=== PATIENT | female | born 1980 | race Caucasian/White ===

== ENCOUNTER 2022-11-09 16:47 | Emergency (ER) | payer OTHER, SELFPAY ==
[2022-11-09 17:19] VITALS: BP 124/78; PULSE 87; RESP 16; TEMP 36.8; O2SAT 98; BMI 27.5
--- NOTE | 2022-11-09 17:31 | DI.CT.S_ITS ---
PROCEDURE: CT ABDOMEN PELVIS W CON INDICATIONS: Right lower quadrant abdominal pain eval for appy TECHNIQUE: After the administration of oral and IV contrast, axial sections were acquired from the lung bases to the pubic symphysis. Coronal and sagittal reformats were performed. For radiation dose reduction, the following was used: automated exposure control, adjustment of mA and/or kV according to patient size. COMPARISON: None. FINDINGS: Image quality: Excellent. Lung bases: Unremarkable. Small hiatal hernia. Heart: No significant findings. ABDOMEN: Liver: Mild hepatic steatosis.. Gallbladder: Unremarkable. Biliary ducts: Unremarkable. Pancreas: Unremarkable. Spleen: Unremarkable. Adrenal Glands: Unremarkable. Kidneys and Ureters: Unremarkable. Stomach and Bowel: Stomach, small bowel loops, and colon are unremarkable. Appendix is normal. Peritoneum: No abnormal intraperitoneal fluid. No free air. Ventral Wall: No hernia. Abdominal Nodes: No retroperitoneal or mesenteric adenopathy by size criteria. Vessels: Aorta and inferior vena cava are normal in size. PELVIS: Pelvic Organs: There is a 3.5 x 2.5 cm cyst in the right adnexa, most likely arising from the right ovary. There is a small amount of free fluid in the cul-de-sac. Left ovary is normal with a dominant follicle measuring 1.7 cm. Uterus is unremarkable. Bladder: Unremarkable. Pelvic Nodes: No enlarged lymph nodes. Miscellaneous: No inguinal hernias are seen. Bones: Unremarkable. IMPRESSION: 1. Normal appendix. 2. A 3.5 x 2.5 cm right ovarian cyst. There is a small amount of free fluid in the cul-de-sac. 3. Mild hepatic steatosis. Dictated by: Luis Alberto Rodas M.D. on 11/09/2022 at 20:14 Approved by: Luis Alberto Rodas M.D. on 11/09/2022 at 20:17
[2022-11-09 19:22] LABS: Add Manual Diff / Slide Review NO; Basophils Absolute Auto 100 /uL (0-100); Basophils Percent Auto 1.3 % (0-2); Eosinophils Absolute Auto 100 /uL (0-450); Eosinophils Percent Auto 1.5 % (2-4); Hematocrit 39.5 % (36-46); Hemoglobin 13.1 g/dL (12.0-16.0); Lymphocytes Absolute Auto 2500 /uL (1100-4500); Lymphocytes Percent Auto 30.2 % (25-40); Mean Corpuscular HGB Conc 33.2 % (30-36); Mean Corpuscular Hemoglobin 29.1 PG (26-34); Mean Corpuscular Volume 87.6 fL (80-100); Monocytes Absolute Auto 700 /uL (0-900); Monocytes Percent Auto 8.7 % (3-14); Neutrophils Absolute Auto 4800 /uL (1500-7000); Neutrophils Percent Auto 58.3 % (50-75); Platelet Count 210 X10^3/uL (150-400); Red Blood Cell Count 4.51 X10^6/uL (4.0-5.2); Red Cell Distribution Width 14.2 % (11.6-14.8); White Blood Cell Count 8.2 X10^3/uL (4.5-11.0)
[2022-11-09 19:35] LABS: Alanine Aminotransferase 29 IU/L (<35); Albumin 4.6 g/dL (3.5-5.0); Albumin Globulin Ratio 1.4 (1.0-2.8); Alkaline Phosphatase 67 U/L (38-126); Aspartate Aminotransferase 23 IU/L (14-36); BUN Creatinine Ratio 16.1 (6-22); Bilirubin Total 0.2 mg/dL (0.2-1.3); Blood Urea Nitrogen 9 mg/dL (7-17); Calcium 9.5 mg/dL (8.4-10.2); Carbon Dioxide 24 mmol/L (22-32); Chloride 101 mmol/L (98-107); Estimated Glomerular Filt Rate > 60 mL/min (>60); Globulin 3.3 g/dL (1.7-4.1); Glucose 93 mg/dL (70-100); HEMOLYSIS < 15 (0-50); Lipase 83 U/L (23-300); Potassium 3.9 mmol/L (3.4-5.1); Sodium 136 mmol/L (137-145); Total Protein 7.9 g/dL (6.3-8.2)
[2022-11-09] MEDS: SODIUM CHLORIDE 0.9% 1,000 ML 1000 ML IV (19:35)
[2022-11-09 19:39] VITALS: BP 140/82; PULSE 73; O2SAT 100
[2022-11-09 20:00] VITALS: BP 129/68; PULSE 79; O2SAT 100
[2022-11-09 20:30] VITALS: BP 134/79; PULSE 73; O2SAT 100
--- NOTE | 2022-11-09 20:45 | ED_ITS ---
HPI - Abdominal Pain General Chief Complaint: Abdominal Pain Stated Complaint: possible appendisitis-pain rt low abd, press Time Seen by Provider: 11/09/22 19:07 Source: patient Mode of arrival: Ambulatory History of Present Illness HPI narrative: A 42-year-old female nonsmoker without chronic medical problems presents for evaluation of right lower quadrant pain at the request of her primary care provider. Patient has had some right lower quadrant pain off and on for the past week, she has had some subjective fever and chills. She denies any change in her appetite. She is had mild nausea but denies any vomiting. She denies dysuria, frequency or urgency. She denies any vaginal bleeding or discharge. Her pain is worse when she moves and improves with rest. Related Data Previous Rx's Medication Instructions Recorded ketorolac 10 mg tablet 10 mg PO Q6H PRN pain #14 tabs 11/09/22 Allergies Allergy/AdvReac Type Severity Reaction Status Date / Time No Known Drug Allergies Allergy Verified 11/09/22 17:19 Review of Systems Review of Systems Narrative: GENERAL: Denies chills, fatigue, malaise, fever, sweats. HEENT: Denies sinus pain, ear pain, sore throat, difficulty swallowing, dizziness. RESPIRATORY: Denies dyspnea, cough, wheezing, hemoptysis, sputum. CARDIOVASCULAR: Denies chest pain, palpitations, orthopnea, edema, GASTROINTESTINAL: See HPI : See HPI MUSCULOSKELETAL: denies weakness, joint pain, or bony pain SKIN: Denies rash, skin lesions, or other NEUROLOGIC: Denies weakness, headache, numbness, change in speech, confusion, seizures, incoordination. PSYCHIATRIC: No concerning psychosocial issues. 12 point review of systems is negative except for those stated above Patient History Social History Smoking Status: Current every day smoker Smoking Status: Current every day smoker Substance Use Type: does not use Exam Narrative Exam Narrative: GENERAL: [42] year old patient appears stated age. Well-developed patient, in mild distress. HEAD: Atraumatic. Normocephalic. EYES: Pupils equal round and reactive. Extraocular motions intact. No scleral icterus. No injection or drainage. ENT: Nose without bleeding, purulent drainage. Throat without erythema, tonsillar hypertrophy or exudate. Airway patent. NECK: Trachea midline. Non tender CARDIOVASCULAR: Regular rate and rhythm without murmurs, gallops, or rubs. RESPIRATORY: Clear to auscultation. Breath sounds equal bilaterally. No wheezes, rales, or rhonchi. GASTROINTESTINAL: Abdomen soft, right lower quadrant tenderness, nondistended. EXTREMITIES: No edema or joint tenderness. BACK: Nontender without deformity or crepitance. No flank tenderness. NEURO: AOx3. SKIN: No rash or erythema of visible areas Initial Vital Signs Initial Vital Signs: Vital Signs Temperature 98.2 F 11/09/22 17:19 Pulse Rate 87 11/09/22 17:19 Respiratory Rate 16 11/09/22 17:19 Blood Pressure 124/78 11/09/22 17:19 Pulse Oximetry 98 11/09/22 17:19 Oxygen Delivery Method 11/09/22 17:19 Course Orders Ordered: ED Orders 11/09/22 17:31 CT abdomen pelvis w con Stat 11/09/22 19:13 Complete Blood Count AUTO DIFF Stat Comprehensive Metabolic Panel Stat Lipase Stat 11/09/22 20:52 US pelvic complete Stat Discontinued Medications Sodium Chloride (Normal Saline 0.9%) 1,000 mls @ 1,000 mls/hr IV BOLUS ONE Stop: 11/09/22 18:29 Last Infusion: 11/09/22 20:34 Dose: 0 mls/hr Documented By: Admin: 11/09/22 19:35 Dose: 1,000 mls/hr Documented By: KELSIE Vital Signs Vital signs: Vital Signs - 8 hr 11/09/22 19:39 11/09/22 19:39 11/09/22 20:00 Pulse Rate 73 Blood Pressure 140/82 129/68 Pulse Oximetry 100 11/09/22 20:00 11/09/22 20:30 11/09/22 20:30 Pulse Rate 79 73 Blood Pressure 134/79 Pulse Oximetry 100 100 11/09/22 21:00 11/09/22 21:00 11/09/22 21:30 Pulse Rate 78 76 Blood Pressure 135/90 Pulse Oximetry 99 100 MDM - Abdominal Pain Lab Data 11/09/22 19:13 11/09/22 19:13 Labs: Lab Results 11/09/22 11/09/22 Range/Units 19:13 19:13 WBC 8.2 (4.5-11.0) X10^3/uL RBC 4.51 (4.0-5.2) X10^6/uL Hgb 13.1 (12.0-16.0) g/dL Hct 39.5 (36-46) % MCV 87.6 (80-100) fL MCH 29.1 (26-34) PG MCHC 33.2 (30-36) % RDW 14.2 (11.6-14.8) % Plt Count 210 (150-400) X10^3/uL Neut % (Auto) 58.3 (50-75) % Lymph % (Auto) 30.2 (25-40) % [place]ancock % (Auto) 8.7 (3-14) % Eos % (Auto) 1.5 L (2-4) % Baso % (Auto) 1.3 (0-2) % Neut # (Auto) 4800 (7939-2214) /uL Lymph # (Auto) 2500 (9406-8971) /uL Hancock # (Auto) 700 (0-900) /uL Eos # (Auto) 100 (0-450) /uL Baso # (Auto) 100 (0-100) /uL Sodium 136 L (137-145) mmol/L Potassium 3.9 (3.4-5.1) mmol/L Chloride 101 (98-107) mmol/L Carbon Dioxide 24 (22-32) mmol/L BUN 9 (7-17) mg/dL Creatinine 0.56 (0.52-1.04) mg/dL Estimated GFR > 60 (>60) mL/min BUN/Creatinine Ratio 16.1 (6-22) Glucose 93 (70-100) mg/dL Calcium 9.5 (8.4-10.2) mg/dL Total Bilirubin 0.2 (0.2-1.3) mg/dL AST 23 (14-36) IU/L ALT 29 (<35) IU/L Alkaline Phosphatase 67 (38-126) U/L Total Protein 7.9 (6.3-8.2) g/dL Albumin 4.6 (3.5-5.0) g/dL Globulin 3.3 (1.7-4.1) g/dL Albumin/Globulin Ratio 1.4 (1.0-2.8) Lipase 83 (23-300) U/L Point of care testing: Urine Dip Bedside Urine Glucose Negative Bedside Urine Bilirubin - Negative Bedside Urine Ketone - Negative Urine Specific [place] 1.010 Bedside Urine Occult Blood - Negative Bedside Urine pH 6.0 Bedside Urine Protein - Negative Bedside Urine Urobilinogen 0.2 Bedside Urine Nitrite - Negative Bedside Urine Leukocytes - Negative Esterase Imaging Data US - PASSENGER VESSEL CHEF: Radiologist's Impression: [address] [address] Ultrasound Report Signed Patient: Loree Becker MR#: [id number] : 1980 Acct:[id number] Age/Sex: 42 / F Date of Service: 11/09/22 Loc: ED Accession Number: [id number] ?? Procedure: US pelvic complete Ordering Provider: Nahid Barry D.O. PROCEDURE:? US PELVIC COMPLETE ? INDICATIONS:? RIGHT PELVIC PAIN ? TECHNIQUE:? Real-time scanning was performed of the pelvic organs, with image documentation.? Additional endovaginal scanning was necessary due to incomplete visualization of the adnexal and endometrial structures by transabdominal scanning.? ? COMPARISON:? [facility], CT, CT ABDOMEN PELVIS W CON, 11/09/2022, 19:16. ? FINDINGS:? ?? Uterus:? Uterus is anteverted and measures 10.5 x 5.3 x 6.6 cm.? The endometrium is heterogeneous and measures up to 2.5 cm in thickness within the fundus.? An associated hypoechoic midline mass is demonstrated within the fundal endometrium, measuring up to 2.0 x 2.0 x 2.0 cm.? There is internal vascularity on color Doppler interrogation.? Findings are suggestive of a submucosal fibroid. ? Ovaries:? The right ovary measures 3.6 x 3.1 x 4.3 cm, with a calculated ovarian volume of 24.7 cc. The left ovary measures 1.5 x 2.5 x 2.6 cm, with a calculated ovarian volume of 5.2 cc. The ovaries have a normal sonographic appearance. Less than 12 follicles can be seen in each ovary.? No adnexal masses.? There is a thick-walled heterogeneous hypoechoic cyst within the right ovary measuring up to 3.5 x 2.4 x 2.4 cm.? No internal vascularity on color Doppler interrogation.? An anechoic cyst is demonstrated within the left ovary measuring up to 1.7 x 1.6 x 1.8 cm likely representing a follicular cyst.? There is patent arterial flow demonstrated in the ovaries. ? Other:? No pathologic free abdominal or pelvic fluid. ? ? IMPRESSION:? ? 1. Heterogeneous complex cyst within the right ovary likely represents a hemorrhagic cyst.? Consider follow-up ultrasound in 6 weeks to demonstrate resolution. ? 2. Endometrial mass within the uterine fundus likely represents a submucosal f ibroid.? Consider further evaluation with pelvic MRI or hysteroscopy. ? 3. Simple left ovarian cyst likely represents a follicular cyst.? ? ? We strive to produce accurate, complete, and clear reports of imaging services. To assist us in improving patient care, this report was composed using standard report templates and voice recognition software. Therefore, it may contain abnormal punctuation, insertions and/or omissions. Occasional wrong-word or sound-alike substitutions may occur. Though we review the report and make efforts to correct it, we do recommend that the report be read carefully in proper context to recognize any text inaccuracies. ? ? Dictated by: Lamin Onofre M.D. on 11/09/2022 at 22:23 ? ? CT scan - abdomen/pelvis: Radiologist's Impression: [place] [address] Ultrasound Report Signed Patient: Loree Becker MR#: [id number] : 1980 Acct:[id number] Age/Sex: 42 / F Date of Service: 11/09/22 Loc: ED Accession Number: [id number] ?? Procedure: US pelvic complete Ordering Provider: Nahid Barry D.O. PROCEDURE:? US PELVIC COMPLETE ? INDICATIONS:? RIGHT PELVIC PAIN ? TECHNIQUE:? Real-time scanning was performed of the pelvic organs, with image documentation.? Additional endovaginal scanning was necessary due to incomplete visualization of the adnexal and endometrial structures by transabdominal scanning.? ? COMPARISON:? [facility], CT, CT ABDOMEN PELVIS W CON, 11/09/2022, 19:16. ? FINDINGS:? ?? Uterus:? Uterus is anteverted and measures 10.5 x 5.3 x 6.6 cm.? The endometrium is heterogeneous and measures up to 2.5 cm in thickness within the fundus.? An associated hypoechoic midline mass is demonstrated within the fundal endometrium, measuring up to 2.0 x 2.0 x 2.0 cm.? There is internal vascularity on color Doppler interrogati on.? Findings are suggestive of a submucosal fibroid. ? Ovaries:? The right ovary measures 3.6 x 3.1 x 4.3 cm, with a calculated ovarian volume of 24.7 cc. The left ovary measures 1.5 x 2.5 x 2.6 cm, with a calculated ovarian volume of 5.2 cc. The ovaries have a normal sonographic appearance. Less than 12 follicles can be seen in each ovary.? No adnexal masses.? There is a thick-walled heterogeneo us hypoechoic cyst within the right ovary measuring up to 3.5 x 2.4 x 2.4 cm.? No internal vascularity on color Doppler interrogation.? An anechoic cyst is demonstrated within the left ovary measuring up to 1.7 x 1.6 x 1.8 cm likely representing a follicular cyst.? There is patent arterial flow demonstrated in the ovaries. ? Other:? No pathologic free abdominal or pelvic fluid. ? ? IMPRESSION:? ? 1. Heterogeneous complex cyst within the right ovary likely represents a hemorrhagic cyst.? Consider follow-up ultrasound in 6 weeks to demonstrate resolution. ? 2. Endometrial mass within the uterine fundus likely represents a submucosal fibroid.? Consider further evaluation with pelvic MRI or hysteroscopy. ? 3. Simple left ovarian cyst likely represents a follicular cyst.? ? ? We strive to produce accurate, complete, and clear reports of imaging services. To assist us in improving patient care, this report was composed using standard report templates and voice recognition software. Therefore, it may contain abnormal punctuation, insertions and/or omissions. Occasional wrong-word or sound-alike substitutions may occur. Though we review the report and make efforts to correct it, we do ping mmend that the report be read carefully in proper context to recognize any text inaccuracies. ? ? Dictated by: Lamin Onofre M.D. on 11/09/2022 at 22:23 ? ? MDM Narrative Medical decision making narrative: CC: 42-year-old female with right lower quadrant pain and concern for appendicitis Complicating co-morbidities: No chronic history Data collected from: Patient Medical records reviewed: No other notes in EMR Differential considered, but not limited to: Appendicitis, kidney stone, ovarian cyst, ovarian torsion, tubo-ovarian abscess versus other Exam documented above, pertinent findings include: Mild right lower quadrant pain, no guarding or peritoneal signs, negative obturator, psoas and heel tap Lab Test results independently reviewed as above. Pertinent findings: Notably no leukocytosis or left shift, urine without blood or sign of infection, no Imaging studies independently reviewed: Ultrasound demonstrates right ovarian cyst, CT shows cyst, no appendicitis Discussion: Patient with right lower quadrant pain off and on for the past week sent by PCP for evaluation. She is had subjective fever but none here, no leukocytosis or left shift. Urine negative for , blood or signs of infection. Ultrasound shows cyst, no torsion or TOA. CT demonstrates cyst, no evidence of appendicitis or bowel obstruction. Pain is well controlled, patient tolerating orals Disposition: see below, along with detailed discharge instructions that have been reviewed with patient as well as indications for ED re-evaluation and additional outpatient follow up Discharge Plan Departure Patient Disposition: Home Clinical Impression: Ovarian cyst Qualifiers: Laterality: right Qualified Code(s): N83.201 - Unspecified ovarian cyst, right side Instructions: DI for Ovarian Cyst Activity Restrictions/Additional Instructions: *You have been diagnosed with [right lower quadrant pain due to ovarian cyst, as we discussed your labs are reassuring and there is no evidence of appendicitis] *What to do: *Please continue to take your regular medications as directed. [x ] New medication prescriptions sent to your pharmacy: [ [facility]] [ ] New medication written as a paper prescription [ ] No new medications given *Please follow up with your primary care provider in 2-3 days, call for an appointment. Let them know you were seen in the Emergency Department and that we ask that you be seen in follow up. We will electronically transmit a record of today's note if your PCP is in our system *If you do not have a primary care provider please contact the [facility] Resource line at [phone]. They will ask some questions about your medical history and help get you set up with a doctor in the community. *Return to Emergency Department if you should have any new, worsening or concerning symptoms, such as [fever greater than 101 F, shaking chills, worsening pain, persistent vomiting or other bothersome symptoms] Prescriptions: New ketorolac 10 mg tablet 10 mg PO Q6H PRN (Reason: pain) Qty: 14 0RF Referrals: Provider,James AUGUSTINE [Primary Care Provider] - Ian Becker MD [Physician] - Stand Alone Forms: Patient Portal/API
--- NOTE | 2022-11-09 20:52 | DI.US.S_ITS ---
PROCEDURE: US PELVIC COMPLETE INDICATIONS: RIGHT PELVIC PAIN TECHNIQUE: Real-time scanning was performed of the pelvic organs, with image documentation. Additional endovaginal scanning was necessary due to incomplete visualization of the adnexal and endometrial structures by transabdominal scanning. COMPARISON: [facility], CT, CT ABDOMEN PELVIS W CON, 11/09/2022, 19:16. FINDINGS: Uterus: Uterus is anteverted and measures 10.5 x 5.3 x 6.6 cm. The endometrium is heterogeneous and measures up to 2.5 cm in thickness within the fundus. An associated hypoechoic midline mass is demonstrated within the fundal endometrium, measuring up to 2.0 x 2.0 x 2.0 cm. There is internal vascularity on color Doppler interrogation. Findings are suggestive of a submucosal fibroid. Ovaries: The right ovary measures 3.6 x 3.1 x 4.3 cm, with a calculated ovarian volume of 24.7 cc. The left ovary measures 1.5 x 2.5 x 2.6 cm, with a calculated ovarian volume of 5.2 cc. The ovaries have a normal sonographic appearance. Less than 12 follicles can be seen in each ovary. No adnexal masses. There is a thick-walled heterogeneous hypoechoic cyst within the right ovary measuring up to 3.5 x 2.4 x 2.4 cm. No internal vascularity on color Doppler interrogation. An anechoic cyst is demonstrated within the left ovary measuring up to 1.7 x 1.6 x 1.8 cm likely representing a follicular cyst. There is patent arterial flow demonstrated in the ovaries. Other: No pathologic free abdominal or pelvic fluid. IMPRESSION: 1. Heterogeneous complex cyst within the right ovary likely represents a hemorrhagic cyst. Consider follow-up ultrasound in 6 weeks to demonstrate resolution. 2. Endometrial mass within the uterine fundus likely represents a submucosal fibroid. Consider further evaluation with pelvic MRI or hysteroscopy. 3. Simple left ovarian cyst likely represents a follicular cyst. We strive to produce accurate, complete, and clear reports of imaging services. To assist us in improving patient care, this report was composed using standard report templates and voice recognition software. Therefore, it may contain abnormal punctuation, insertions and/or omissions. Occasional wrong-word or sound-alike substitutions may occur. Though we review the report and make efforts to correct it, we do recommend that the report be read carefully in proper context to recognize any text inaccuracies. Dictated by: Lamin Onofre M.D. on 11/09/2022 at 22:23 Approved by: Lamin Onofre M.D. on 11/09/2022 at 22:27
[2022-11-09 21:00] VITALS: BP 135/90; PULSE 78; O2SAT 99
[2022-11-09 21:30] VITALS: PULSE 76; O2SAT 100
== END 2022-11-09 21:59 | disposition home or self-care (01) ==
PROVIDERS: Emergency Medicine; Emergency Provider Emergency Medicine
DX: N83.201 Unspecified ovarian cyst, right side (principal)
CPT/HCPCS: 36415; 74177; 76830; 76856; 80053; 81003; 83690; 85025; 93976; 99284; Q9967

== ENCOUNTER 2023-02-28 06:42 | Day surgery (SDC) | payer OTHER, SELFPAY ==
[2023-02-24 07:43] VITALS: BMI 28.9
[2023-02-28] VITALS (9 sets, daily range): BP systolic 110–127; BP diastolic 65–83; PULSE 72–731; RESP 11–16; TEMP 35.9–36.8; O2SAT 96–100; BMI 28.9
--- NOTE | 2023-02-28 | PATH_ITS ---
[facility] Accession Number: [id number] No. of containers..02 Tissue . 01 Material submitted: . PART A: endometrium - ENDOMETRIAL MASS FRAGMENTS PART B: endometrium - ENDOMETRIAL CURETTINGS . 01 Diagnosis: A. Endometrial Mass Fragments, Excision: Fragments of weakly proliferative endometrium with focal features of polyp and breakdown/shedding with focally decidualized stroma consistent with progesterone effect/therapy. Fragments of benign smooth muscle. No evidence of endometrioid intraepithelial neoplasia or malignancy. . B. Endometrium, Curettage: Proliferative endometrium with shedding/breakdown and reactive surface changes. Background with features of disordered maturation. Few fragments of benign endocervical epithelium with squamous metaplasia. No evidence of endometrioid intraepithelial neoplasia or malignancy. V 03/03/2023 1617 Local . 01 Electronically signed: . Oksana Yip MD, Pathologist NPI- [id number] . 01 Gross description: . Part A: ENDOMETRIAL MASS FRAGMENTS: Received in formalin is multiple fragment of noonan soft tissue measuring 1.4 x 1.0 x 0.3 cm in aggregate. Specimen is submitted in its entirety in 1 cassette. Part B: ENDOMETRIAL CURETTINGS: Received in formalin are minute fragments of mucoid and hemorrhagic material measuring 1.3 x 1.3 x 0.4 cm in aggregate. Submitted in toto in 1 cassette. /ISSAC 03/01/2023 1853 Local . 01 Pathologist provided ICD-10: N93.9 . 01 CPT . 388829, 217057 Specimen Comment: A courtesy copy of this report has been sent to [phone] Performed at: 01 [facility] [address] [place] [address] [address], [place], [place] [id number] MD Lamin Mg MD Phone: [phone]
[2023-02-28] MEDS: LACTATED RINGERS 1,000 ML 84 ML IV ×2 (07:08→10:25)
--- NOTE | 2023-02-28 07:19 | SUR.OPER ---
Lithotomy on padded OR bed, head on pillow, arms secured on padded arm boards at <90 degrees abduction. Legs secured in padded yellow fins stirrups.
--- NOTE | 2023-02-28 07:29 | PM.PREOP ---
Pre-operative Note COVID-19 COVID-19 status: Not tested Criteria for continued procedure: Non-surgical alternatives not available or appropriate per current SOC Interval Note History & Physical reviewed/Exam performed by Physician: Yes Changes to H&P: No
[2023-02-28] MEDS: CEFAZOLIN 2 GM/100 ML PREMIX 100 ML IV (08:20)
[2023-02-28] MEDS: BUPIVACAINE 0.25% (PF) VIAL 30 ML INJ (09:45)
--- NOTE | 2023-02-28 09:54 | PM.GYNOP.1 ---
Operative Date/Time/Diagnoses Date of procedure: 02/28/23 Time of procedure: 08:30 Pre-op diagnosis: Menometrorrhagia Submucous myoma Hemorrhagic cyst, right ovary Right lower quadrant pain Stress urinary incontinence Post-op diagnosis: other (Same as above; normal right ovary) Procedure & Clinicians Procedure: Procedures Operation Date: 02/28/23 07:45 Actual Procedure Side Surgeon p Laparoscopy, Diagnostic, ADMISSIONS DEAN Ian Becker MD s Hysteroscopy w/ resection of endometrial mass, D&C, endometrial ablation (novasure) Ian Becker MD s mid urethral sling placement w. cystoscopy Ian Becker MD Indications: Loree is a 42-year-old , LMP 11/17/2022 who presents for evaluation of extremely heavy periods and the recent onset of severe right lower quadrant pain.? Patient experienced menarche at age 11 and had regular predictable periods throughout most of her reproductive life.? She typically used oral contraceptives between her four vaginal deliveries but had a copper IUD inserted after her 3rd .? Following her 4th delivery she had a tubal ligation performed in 2014 and her periods have been extremely heavy ever since.? Her most recent menses was in November 2022 and this delay between periods is highly atypical.? She typically has cycles that occur 18 days apart with each menses lasting 5-8 days.? Her menstrual flow is becoming heavier over time with numerous accidents and overflows especially at night.? In addition to the heavy bleeding she has severe dysmenorrhea which makes it impossible for her to leave the house at times due to pain and bleeding.? She had the relatively sudden onset of right lower quadrant pain in early October and went to the emergency department at [facility] where a pelvic ultrasound was performed on 11/09/2022 which showed: PROCEDURE:? US PELVIC COMPLETE ? INDICATIONS:? RIGHT PELVIC PAIN ? TECHNIQUE:? Real-time scanning was performed of the pelvic organs, with image documentation.? Additional endovaginal scanning was necessary due to incomplete visualization of the adnexal and endometrial structures by transabdominal scanning.? ? COMPARISON:? [facility], CT, CT ABDOMEN PELVIS W CON, 11/09/2022, 19:16. ? FINDINGS:? ?? Uterus:? Uterus is anteverted and measures 10.5 x 5.3 x 6.6 cm.? The endometrium is heterogeneous and measures up to 2.5 cm in thickness within the fundus.? An associated hypoechoic midline mass is demonstrated within the fundal endometrium, measuring up to 2.0 x 2.0 x 2.0 cm.? There is internal vascularity on color Doppler interrogation.? Findings are suggestive of a submucosal fibroid. ? Ovaries:? The right ovary measures 3.6 x 3.1 x 4.3 cm, with a calculated ovarian volume of 24.7 cc. The left ovary measures 1.5 x 2.5 x 2.6 cm, with a calculated ovarian volume of 5.2 cc. The ovaries have a normal sonographic appearance. Less than 12 follicles can be seen in each ovary.? No adnexal masses.? There is a thick-walled heterogeneous hypoechoic cyst within the right ovary measuring up to 3.5 x 2.4 x 2.4 cm.? No internal vascularity on color Doppler interrogation.? An anechoic cyst is demonstrated within the left ovary measuring up to 1.7 x 1.6 x 1.8 cm likely representing a follicular cyst.? There is patent arterial flow demonstrated in the ovaries. ? Other:? No pathologic free abdominal or pelvic fluid. ?? IMPRESSION:? ? 1. Heterogeneous complex cyst within the right ovary likely represents a hemorrhagic cyst.? Consider follow-up ultrasound in 6 weeks to demonstrate resolution. ? 2. Endometrial mass within the uterine fundus likely represents a submucosal fibroid.? Consider further evaluation with pelvic MRI or hysteroscopy. ? 3. Simple left ovarian cyst likely represents a follicular cyst.? [employer] review of systems is notable for history of pelvic organ prolapse and stress urinary incontinence.? The patient's last Pap smear was performed in 2014 but all of her Paps throughout her reproductive life have been normal.? Endometrial biopsy performed 01/12/2023 shows no significant pathology. Options for further evaluation/treatment of her right lower quadrant pain, menometrorrhagia with severe dysmenorrhea, and stress urinary incontinence discussed.? Exam shows her pelvic organ prolapse to be minimal with a stage I cystocele but no significant apical descent, rectocele, or enterocele noted.? After discussion regarding all options available, the patient wishes to proceed with diagnostic laparoscopy to evaluate for the cause of her right lower quadrant pain, hysteroscopy with resection of endometrial mass, endometrial ablation (NovaSure), and mid urethral sling placement.? She presents today for her scheduled surgery. Surgeon: Ian Becker Anesthesia Type: General Operative Notes Findings: Uterus is upper limits of normal size and mid plane. The anterior and posterior cul-de-sac were free of any abnormalities. Both fallopian tubes demonstrate changes consistent with a partial salpingectomy with the distal 3rd of the fallopian tubes remaining in-situ on both sides. The right ovary is normal in size and shape with no evidence of hemorrhagic cyst. There is a follicular cyst within the left ovary but no other abnormalities of the odor free noted. Careful inspection of the right sided pelvis in the right lower quadrant feel no identifiable cause of the patient's right lower quadrant pain. The appendix was unable to be visualized as it appears to be retrocecal. The gallbladder edge was normal as was the edge of the liver as visualized laparoscopically. The endometrial cavity was normal in shape but there was a submucosal myoma identified posteriorly in the lower uterine segment which was resected so as to make the cavity surface uniform prior to ablation Closure Type: primary Specimen(s): endometrial curettings and other (Fragments, submucous myoma) Estimated blood loss (mL): 50 Procedure in detail: With the patient under satisfactory general anesthesia in the modified dorsal lithotomy position, the perineum, vagina, and abdomen were prepped for laparoscopy and hysteroscopy. A pre-surgical safety time-out was then taken in accordance with [facility] Main OR protocols. The inferior surface of the umbilicus was infiltrated with 0.5% Marcaine with epinephrine and a 1 cm vertical incision was made. A Veress needle was then used to insufflate the abdomen with carbon dioxide and once insufflated a 5 mm trocar and sleeve were placed through the umbilical incision. Proper placement of the sleeve in the abdominal cavity was confirmed with the laparoscope and a 2nd and 3rd puncture with a 5 mm trocar and sleeve were then made in the left and right mid quadrants using a similar technique. Using a three-vessel technique the pelvis and abdomen were thoroughly inspected and photographically documented with the findings as noted above. Absent any significant abnormalities or identifiable cause of the patient's right lower quadrant pain, the laparoscopy was then terminated by the any of the pneumoperitoneum. The laparoscopic sleeves were then removed and the incisions closed with 4-0 Monocryl suture using inverted interrupted stitches. Skin glue was applied appropriate dressings applied. Attention was then turned to hysteroscopy and a bivalve speculum was inserted in the vagina. The anterior lip cervix was grasped with a single-tooth tenaculum and the endocervical canal dilated to 8 mm with Hegar dilators. Hysteroscopy was then performed with sterile saline as a distention medium and once the submucous myoma was identified as the mass seen on ultrasound, the distention medium was switched to sorbitol and a resectoscope placed within the endometrial cavity. Shavings of the submucous myoma were then taken so as to resect as much of the myoma as possible and to bring the surface of the endometrium to uniform level throughout. Once that was accomplished, curettage was performed with a separate specimen of endometrial curettings obtained. The NovaSure sounding device was then introduced in the cavity found to be greater than 6.5 cm with a width of 4.2 cm. NovaSure ablation was then accomplished after cavity integrity test confirmed an intact cavity with a ablation time of 1 minute 2 seconds and power of 150 w applied. Hysteroscopy of the endometrial cavity post ablation showed an excellent ablated effect throughout and debris was removed from the endometrial cavity. The single-tooth tenaculum was then removed from the anterior lip of the cervix and attention turned to the mid urethral sling. The mid urethra was identified by palpation of the Valdez and the Valdez bulb. A 1.5 cm longitudinal incision of the anterior vaginal wall was made underneath the mid urethra and dissected bilaterally with Metzenbaum scissors. The retropubic tension-free vaginal tape was then introduced 1st on the right side followed by the left and appropriately tension prior to removal of the sleeves. Cystoscopy showed no injury to the bladder and vigorous jets of clear urine coming from each of the ureteral meati. Correct tensioning of the TVT was then confirmed and the redundant portion of the TVT mesh was excised suprapubically. The vaginal incision was then closed with 2-0 chromic in a running interlocking stitch with excellent hemostasis achieved. Pressure was maintained and on the retropubic space for 3-5 minutes following completion of the vaginal closure and no significant bleeding was identified. Skin glue was applied to the suprapubic incisions and a dressing applied. Patient was then awakened transferred to the PACU after having tolerated the procedure well. Complications: none Post-operative Condition: stable Disposition: PACU Plan for aftercare: Routine postoperative care with follow-up planned for 2 weeks postop
[2023-02-28] MEDS: fentaNYL 100 MCG/2 ML INJ IV (10:23)
[2023-02-28] MEDS: OXYCODONE/ACETAMINOPHEN 5/325 TABLET 1 TAB PO (10:24)
[2023-02-28] MEDS: ONDANSETRON 4 MG/2 ML INJ IV (10:24)
== END 2023-02-28 11:10 | disposition home or self-care (01) ==
PROVIDERS: Referring Provider Obstetrics & Gynecology; Visit Provider Obstetrics & Gynecology
PROC: (CPT 49320; principal; 2023-02-28 07:45)
PROC: 0UDB8ZZ Extraction of Endometrium, Via Natural or Artificial Opening Endoscopic (ICD-10-PCS; CPT 58558; 2023-02-28 07:45)
PROC: 0TSD0ZZ Reposition Urethra, Open Approach (ICD-10-PCS; 2023-02-28 07:45)
DX: D25.0 Submucous leiomyoma of uterus (principal); N39.3 Stress incontinence (female) (male); N83.02 Follicular cyst of left ovary
CPT/HCPCS: 49320; 57288; 58563; 58561; C1771; J0690; J1100; J1885; J2250; J2405; J3010; J3490